=== PATIENT | male | born 1930 | race Caucasian/White ===

== ENCOUNTER 2021-08-20 00:14 | Emergency (ER) | payer MEDICARE, OTHER ==
[~2021-08-20] VITALS: Ht 180.3 cm; Wt 97.2 kg
[2021-08-20 02:38] LABS: ABSOLUTE EOSINOPHILS 0.2 thou/uL (0.0-0.7); ABSOLUTE LYMPHOCYTES 1.5 thou/uL (0.8-5.3); ABSOLUTE MONOCYTES 0.5 thou/uL (0.0-1.2); ABSOLUTE NEUTROPHILS 3.5 thou/uL (1.6-8.1); BASOPHILS 0.6 %; EOSINOPHILS 3.6 %; HEMATOCRIT 47.2 % (42.0-52.0); HEMOGLOBIN 15.7 gm/dL (14.0-18.0); MCH 29.8 pg (26.0-34.0); MCHC 33.2 g/dL (28.0-37.0); MCV 89.8 fL (80.0-100.0); NUCLEATED RBCS 0 /100WBC; PLATELET COUNT* 168 thou/uL (150-400); POLYS 60.8 %; RBC 5.26 mil/uL (4.50-6.00); RDW-CV 14.7 % (10.5-14.5); WBC 5.8 thou/uL (4.0-11.0)
[2021-08-20 02:56] LABS: ALBUMIN 3.5 g/dL (3.4-5.0); CALCIUM 8.8 mg/dL (8.5-10.1); MAGNESIUM 1.5 mg/dL (1.8-2.4); POTASSIUM 4.5 mmol/L (3.5-5.1); TOTAL BILIRUBIN 0.4 mg/dL (<0.1-1.0); TOTAL PROTEIN 6.7 g/dL (6.4-8.2)
[2021-08-20] MEDS ORDERED: CARAFATE 1 GM TA1 GM PO (05:16)
[2021-08-20 05:30] VITALS: BP 138/98
--- NOTE | 2021-08-21 13:13 | EKG ---
[place] [address] ELECTROCARDIOGRAM REPORT Name: CORDELIA FRAZIER JR Room: [facility]#: [id number] Admission: 08/20/21 Attend Phys: Discharge: 08/20/21 Date of : [birth year] Date of Service: 08/20/2123 Report #: [id number] THIS REPORT FOR: //name// [facility] ED Test Date: 2021-08-20 Test Time: 00:24:45 Pat Name: CORDELIA FRAZIER Department: Room: Gender: Bone Tender: : 1930 Requested By: Iraida Laws Order Number: [id number] MD: Wali Beltre Measurements Intervals [place] Rate: 56 P: 61 AK: 205 QRS: 12 QRSD: 98 T: 84 QT: 437 QTc: 422 Interpretive Statements Sinus rhythm Anteroseptal infarct, age indeterminate No previous ECG available for comparison Electronically Signed On 08-21-2021 13:13:23 [employer] by Wali Beltre [email or web address] <ELECTRONICALLY SIGNED> By: Wali Beltre MD, [facility] 08/21/21 1313 0024 Wali Beltre MD, FACC /EPI
== END 2021-08-20 05:31 | disposition home or self-care (01) ==
LOC: M.ERS 00:14
PROVIDERS: Emergency Medicine
DX: R12 Heartburn (principal); E11.9 Type 2 diabetes mellitus without complications; I25.2 Old myocardial infarction; K21.9 Gastro-esophageal reflux disease without esophagitis; I10 Essential (primary) hypertension; E78.00 Pure hypercholesterolemia, unspecified